=== PATIENT | female | born 1985 | race Asian ===

== ENCOUNTER 2024-12-05 03:29 | Emergency (ER) | payer SELFPAY ==
[~2024-12-05] VITALS: Ht 165.1 cm; Wt 55.0 kg
[2024-12-05 03:33] VITALS: O2SAT 98
[2024-12-05 04:33] LABS: BASOPHILS % 0.5 % (0.0-2.0); EOSINOPHILS % 0.7 % (0.0-5.0); HEMATOCRIT. 36.7 % (36.0-48.0); HEMOGLOBIN. 11.8 g/dL (12.0-16.0); LYMPHOCYTES % 31.4 % (20.0-50.0); MEAN CORPUSCULAR HEMOGLOBIN 28.5 pg (28.0-32.0); MEAN CORPUSCULAR HGB CONC 32.2 g/dL (31.0-37.0); MEAN CORPUSCULAR VOLUME 88.4 fL (81.0-99.0); MEAN PLATELET VOLUME 8.8 fl (7.4-10.4); MONOCYTES % 6.3 % (2.0-8.0); NEUTROPHILS % 61.1 % (40.0-76.0); PLATELET 356 x1000/uL (130-400); RED BLOOD CELL COUNT 4.15 mill/uL (4.2-5.4)
[2024-12-05 04:46] LABS: CLARITY URINE CLEAR (CLEAR); COLOR URINE YELLOW (YELLOW); GLUCOSE URINE NEGATIVE (NEGATIVE); KETONES URINE NEGATIVE (NEGATIVE); LEUKOCYTE ESTERASE URINE NEGATIVE (NEGATIVE); NITRITE URINE NEGATIVE (NEGATIVE); OCCULT BLOOD URINE NEGATIVE (NEGATIVE); PH URINE 6.5 (4.5-8.0); PROTEIN URINE NEGATIVE (NEGATIVE); SPECIFIC GRAVITY URINE 1.002 (1.005-1.030); UROBILINOGEN URINE 0.2 E.U./dL (0.2-1.0)
[2024-12-05 04:50] LABS: *AMPHETAMINES SCREEN URINE NEGATIVE (NEGATIVE); *BARBITURATES SCREEN URINE NEGATIVE (NEGATIVE); *BENZODIAZEPINES SCREEN URINE NEGATIVE (NEGATIVE); *COCAINE SCREEN URINE NEGATIVE (NEGATIVE)
[2024-12-05 04:51] LABS: CANNABINOID URINE SCREEN NEGATIVE (NEGATIVE); ECSTASY MDMA SCREEN URINE NEGATIVE (NEGATIVE); METHADONE URINE SCREEN NEGATIVE (NEGATIVE); OPIATES URINE SCREEN NEGATIVE (NEGATIVE); PHENCYCLIDINE URINE SCREEN NEGATIVE (NEGATIVE)
[2024-12-05 05:04] LABS: CHLORIDE 105 mEq/L (98-107); POTASSIUM 3.2 mEq/L (3.5-5.1); SODIUM 137 mEq/L (136-145)
[2024-12-05 05:05] LABS: CARBON DIOXIDE 22 mEq/L (21-32)
[2024-12-05 05:06] LABS: CALCIUM 9.9 mg/dL (8.7-10.4)
[2024-12-05] MEDS: HALOPERIDOL LACTATE 5MG/ML VIAL IM ONE (05:08)
[2024-12-05] MEDS: DIPHENHYDRAMINE 50MG/ML VIAL IM ONE (05:08)
[2024-12-05 05:10] LABS: CREATININE 0.6 mg/dL (0.6-1.0); GLUCOSE 98 mg/dL (70-105); UREA NITROGEN BLOOD 5 mg/dL (9-23)
[2024-12-05 05:12] LABS: ACETAMINOPHEN < 2 ug/mL (10-30)
[2024-12-05 05:14] LABS: ETHANOL BLOOD < 10 mg/dL (<10)
[2024-12-05 05:32] LABS: HCG SCREEN NEGATIVE
[2024-12-05] MEDS: LORAZEPAM 2MG/ML INJ IM ONE (23:06)
[2024-12-06] MEDS: ACETAMINOPHEN 500MG TABLET PO NR (07:15)
[2024-12-06] MEDS: LORAZEPAM 2MG/ML INJ IM ONE (22:45)
[2024-12-07] MEDS: LORAZEPAM 2MG/ML INJ IM NR (05:18)
[2024-12-07] MEDS: POTASSIUM CHLORIDE 20MEQ/PACKET PO ONE (15:01)
[2024-12-07] MEDS: LORAZEPAM 1MG TABLET PO ONE (22:30)
[2024-12-08] MEDS: ZIPRASIDONE MESYLATE 20MG/VIAL IM ONE (01:30)
[2024-12-08 06:00] VITALS: TEMP 36.9
[2024-12-08 10:00] VITALS: BP 132/82; PULSE 86; RESP 16; O2SAT 99
== END 2024-12-08 11:38 | disposition home or self-care (01) ==
LOC: ER 03:29
DX: R45.850 Homicidal ideations (principal); F19.90 Other psychoactive substance use, unspecified, uncomplicated; R07.9 Chest pain, unspecified; Z20.822 Contact with and (suspected) exposure to COVID-19; Z79.899 Other long term (current) drug therapy
CPT/HCPCS: 80305; 80048; 81003; 80307; 80329; 80320; 84703; 85025; 36415; 93005; 96372 ×4; 99285; 87426; J1200; J1630; J2060 ×2; Z7610 ×3; J3486; G0480